=== PATIENT | male | born 1970 | race Two or more races ===

== ENCOUNTER 2023-09-20 14:19 | Emergency (ER) | payer MEDICAID ==
[~2023-09-20] VITALS: Ht 170.2 cm; Wt 80.1 kg
[2023-09-20] MEDS ORDERED: ONDANSETRON ODT 4 MG TAB PO ONE (14:45)
[2023-09-20] MEDS ORDERED: HYDROmorphone HCL 2 MG/ML VL/or syr IM ONE (14:45)
[2023-09-20] MEDS ORDERED: IBUP-1455 PO (18:03)
[2023-09-20] MEDS ORDERED: PERCOT PO (18:03)
[2023-09-20 18:31] VITALS: BP 136/87; PULSE 82; RESP 18; TEMP 98.7; O2SAT 99
== END 2023-09-20 18:33 | disposition home or self-care (01) ==
LOC: ER 14:19
DX: S16.1XXA Strain of muscle, fascia and tendon at neck level, initial encounter (principal); S40.012A Contusion of left shoulder, initial encounter; S20.212A Contusion of left front wall of thorax, initial encounter; V49.9XXA Car occupant (driver) (passenger) injured in unspecified traffic accident, initial encounter; Y93.55 Activity, bike riding; Y92.89 Other specified places as the place of occurrence of the external cause; Y99.8 Other external cause status
CPT/HCPCS: 70450; 71101; 72125; 73030; 96372; 99285; J1170; Q0162